=== PATIENT | female | born 1985 | race Caucasian/White ===

== ENCOUNTER 2025-03-22 11:17 | Outpatient (CLI) | payer OTHER, SELFPAY ==
--- NOTE | ~2025-03-22 | US_ITS ---
EXAMINATION:Ultrasound pelvis, complete: DATE: 03/22/2025 INDICATION: 39-year-old with history of displaced IUD TECHNIQUE: Transabdominal pelvic ultrasound was performed with Doppler. Transvaginal examination was not performed. COMPARISON: None. FINDINGS: Uterus measures the length of 7.6 cm and a width of 3 cm. IUD is noted within the endometrial cavity. Right ovary is normal in size, 5 to 6 cc in volume with normal perfusion. Enlargement of left ovary with 4.5 x 5 cm cystic lesion of the left ovary. No free fluid in the pelvis. No focal lesions of the bladder. IMPRESSION: 1. Normal size uterus. IUD is noted within the endometrial cavity. 2. Cystic mass of left adnexa 4.5 x 5 cm in size. Neoplastic cyst is not ruled out. Repeat Ultrasound pelvis including transvaginal examination is recommended after couple of menstrual cycles for further evaluation. Reviewed, dictated and finalized at [facility] IMPRESSION: 1. Normal size uterus. IUD is noted within the endometrial cavity. 2. Cystic mass of left adnexa 4.5 x 5 cm in size. Neoplastic cyst is not ruled out. Repeat Ultrasound pelvis including transvaginal examination is recommended afte r couple of menstrual cycles for further evaluation.
== END 2025-03-22 11:18 | disposition home or self-care (01) ==
PROVIDERS: PCP Nurse Practitioner; Visit Provider Nurse Practitioner
DX: T83.32XA Displacement of intrauterine contraceptive device, initial encounter (principal)
CPT/HCPCS: 76856